=== PATIENT | female | born 1950 | race Caucasian/White ===

== ENCOUNTER 2017-08-03 08:11 | Day surgery (SDC) | payer OTHER ==
[~2017-08-03] VITALS: Ht 162.6 cm; Wt 88.9 kg
[~2017-08-03 08:11] MED LIST: AMARYL4 MG PO; LANTUS 3 M100 UNITS1 SC; ONE DAILY WOME1 EACH PO; PRAVACHOL40 MG PO; ZESTRIL40 MG PO
[2017-08-03 08:52] LABS: POINT-OF-CARE METER ID UU14174212
[2017-08-03 09:33] VITALS: BP 169/80
[2017-08-03 11:32] LABS: POINT-OF-CARE METER ID UU13113675; POINT-OF-CARE USER ID 515036437
[2017-08-03 11:50] VITALS: BP 140/67
== END 2017-08-03 12:20 | disposition home or self-care (01) ==
LOC: SDC 08:11
PROVIDERS: Internal Medicine
DX: H35.341 Macular cyst, hole, or pseudohole, right eye (principal); H33.311 Horseshoe tear of retina without detachment, right eye; I10 Essential (primary) hypertension; E11.9 Type 2 diabetes mellitus without complications; E78.5 Hyperlipidemia, unspecified; Z88.5 Allergy status to narcotic agent
CPT/HCPCS: 82948; J0690; J3300